=== PATIENT | female | born 1970 | race Two or more races ===

== ENCOUNTER 2022-05-18 20:04 | Emergency (ER) | payer MEDICAID ==
[~2022-05-18] VITALS: Ht 165.1 cm; Wt 82.0 kg
[2022-05-18] MEDS ORDERED: MELO-102 PO (20:57)
[2022-05-18] MEDS ORDERED: DULO20CA50 PO (20:57)
[2022-05-18] MEDS ORDERED: FENO130C14 PO (20:57)
[2022-05-18 21:28] LABS: BASOPHILS # (AUTO) 0.1 X10'3 (0-0.2); BASOPHILS % (AUTO) 0.5 % (0-1); EOSINOPHILS # (AUTO) 0.3 X10'3 (0-0.9); HEMATOCRIT 42.2 % (35.0-45.0); HEMOGLOBIN 14.2 g/dl (12.0-16.0); LYMPHOCYTES # (AUTO) 3.6 X10'3 (1.1-4.8); LYMPHOCYTES % (AUTO) 32.3 % (21-51); MEAN CORPUSCULAR HEMOGLOBIN 29.6 PG (27.0-31.0); MEAN CORPUSCULAR HGB CONC 33.6 g/dL (33.0-36.5); MEAN CORPUSCULAR VOLUME 88.1 FL (78-98); MEAN PLATELET VOLUME 9.4 FL (7.4-10.4); MONOCYTES # (AUTO) 1.2 X10'3 (0-0.9); NEUTROPHILS % (AUTO) 53.2 % (42-75); PLATELET COUNT 219 X10'3 (140-440); RED BLOOD COUNT 4.79 X10'6 (4.20-5.60); RED CELL DISTRIBUTION WIDTH 13.6 % (11.5-14.5); WHITE BLOOD COUNT 11.2 X10'3 (4.5-11.0)
[2022-05-18 21:41] LABS: ALANINE AMINOTRANSFERASE 42 U/L (12-78); ALBUMIN/GLOBULIN RATIO 1.1 (1.1-1.5); ALKALINE PHOSPHATASE 80 IU/L (46-116); ANION GAP 8 (8-16); ASPARTATE AMINO TRANSFERASE 32 U/L (10-37); BILIRUBIN,TOTAL 0.3 MG/DL (0.1-1.0); BLOOD UREA NITROGEN 18 MG/DL (7-18); BUN/CREATININE RATIO 14.5 (6.6-38.0); CALCIUM 9.7 MG/DL (8.5-10.1); CHLORIDE 105 MMOL/L (99-107); CREATININE 1.24 MG/DL (0.40-0.90); GLUCOSE 104 MG/DL (70-104); LIPASE 114 U/L (73-393); POTASSIUM 3.8 MMOL/L (3.5-5.1); SODIUM 142 MMOL/L (135-145); TOTAL CARBON DIOXIDE 29.1 MMOL/L (24-32); TOTAL PROTEIN 7.6 G/DL (6.4-8.2); eGFR 45 ML/MIN
[2022-05-18 22:01] LABS: CLARITY,URINE CLEAR (Clear); COLOR,URINE YELLOW (Yellow); GLUCOSE, URINE NEGATIVE (Neg); KETONES,URINE NEGATIVE (Neg); LEUKOCYTE ESTERASE ,URINE TRACE (Neg); NITRITES, URINE NEGATIVE (Neg); OCCULT BLOOD,URINE NEGATIVE (Neg); PROTEIN,URINE NEGATIVE (Neg); UROBILINOGEN,URINE 0.2 E.U/dL (0.2-1.0)
[2022-05-18 22:06] LABS: UA COLLECTION TYPE CLN CATCH MIDSTREAM
[2022-05-18 22:09] LABS: BACTERIA,URINE FEW /HPF (Neg); MUCUS STRANDS FEW /LPF (Neg); RBC,URINE 0-2 /HPF (0-2); SQUAMOUS EPITHELIAL CELL,UR FEW /LPF (FEW); WBC,URINE 0-4 /HPF (0-4)
[2022-05-18] MEDS ORDERED: morphine 4 MG/ML inj SYRINge IV ONE (23:15)
[2022-05-18] MEDS ORDERED: ondansetron/PF 4mg/2ml inj IV ONE (23:15)
[2022-05-18] MEDS ORDERED: normal saline 1000ML IV soln IVB ONE (23:15)
[2022-05-19 00:50] VITALS: BP 155/87
[2022-05-19] MEDS ORDERED: HYDROcodone/acetaminophen 5mg/325mg tablet PO ONE (00:55)
--- NOTE | 2022-05-19 01:05 | NUR ---
PATIENT UP FOR PO CHALLENGE ABLE TO EAT TWO SALTINE CRACKERS AND 240 OZ WATER
[2022-05-19] MEDS ORDERED: HYDR-3965 PO (01:25)
[2022-05-19] MEDS ORDERED: ONDA4TAB12 PO (01:25)
== END 2022-05-19 01:36 | disposition home or self-care (01) ==
LOC: ER 20:06
DX: K80.20 Calculus of gallbladder without cholecystitis without obstruction (principal); R10.11 Right upper quadrant pain; R11.0 Nausea; R06.02 Shortness of breath; Z79.899 Other long term (current) drug therapy
CPT/HCPCS: 36415; 76700; 80053; 81001; 83690; 85025; 87088; 93005; 96361; 96374; 96375; 99285; J2270; J2405; J7030; 99284